=== PATIENT | male | born 1935 | race Caucasian/White ===

== ENCOUNTER 2019-03-22 18:00 | Emergency (ER) | payer MEDICARE ==
[2019-03-22 18:11] VITALS: O2SAT 97
--- NOTE | 2019-03-22 18:11 | ERPHSYRPT ---
- History of Present Illness Time Seen by Provider: 03/22/19 18:05 Source: patient, family Exam Limitations: no limitations Physician History: 84 y/o white male, on Eliquis, for nose bleed. pt states he does have nose bleeds occasionally. pt denies trauma. despite nose bleed intermittently for last couple of days, he has continued his Eliquis. last 2 hours, his bleeding has worsened. it is out of right nostril. Timing/Duration: today Severity: mild Associated Symptoms: denies symptoms (mild to mod) Allergies/Adverse Reactions: No Known Drug Allergies Allergy (Unverified 03/22/19 18:11) Home Medications: Atorvastatin Calcium 80 mg DAILY 03/22/19 [History] Brimonidine Tartrate [Alphagan P 0.15%] 1 drop DAILY 03/22/19 [History] Dorzolamide HCl/Timolol Maleat [Dorzolamide-Timolol Eye Drops] 1 drop DAILY [History] Famotidine 20 mg [Pepcid 20 MG] 20 mg DAILY 03/22/19 [History] Furosemide 40 mg DAILY 03/22/19 [History] Latanoprost 1 drop DAILY 03/22/19 [History] Lisinopril 5 mg DAILY 03/22/19 [History] Metoprolol Succinate 1 ea DAILY 03/22/19 [History] Metoprolol Succinate 100 mg [Toprol Xl 100 MG] 100 mg DAILY 03/22/19 [ History] Tamsulosin HCl 1 ea PO DAILY 03/22/19 [History] - Review of Systems Constitutional: No Symptoms Eyes: No Symptoms Ears, Nose, & Throat: Epistaxis (right side) Respiratory: No Symptoms Cardiac: No Symptoms Abdominal/Gastrointestinal: No Symptoms Genitourinary Symptoms: No Symptoms Musculoskeletal: No Symptoms Skin: No Symptoms Neurological: No Symptoms Psychological: No Symptoms Endocrine: No Symptoms Hematologic/Lymphatic: No Symptoms Immunological/Allergic: No Symptoms All Other Systems: Reviewed and Negative - Past Medical History Neurological History: Peripheral Neuropathy Cardiac History: Hypertension, Other Respiratory History: No Pertinent History Endocrine Medical History: Diabetes Type II Musculoskeletal History: Arthritis - Past Surgical History Cardiac: Pacemaker Respiratory: No Pertinent History - Nursing Vital Signs Nursing Vital Signs: Initial Vital Signs Temperature 99.0 F 03/22/19 18:05 Pulse Rate 74 03/22/19 18:05 Respiratory Rate 16 03/22/19 18:05 Blood Pressure 204/77 03/22/19 18:05 O2 Sat by Pulse Oximetry 97 03/22/19 18:05 Pain Scale Pain Intensity 0 - Physical Exam General Appearance: no apparent distress, alert, anxiety Eye Exam: PERRL/EOMI, eyes nml inspection Ears, Nose, Throat Exam: other (epistaxis right nostril. clot present. no sig active bleeding. no active bleeding from left nostril. no active bleeding into back of throat) Neck Exam: normal inspection, non-tender, full range of motion Respiratory Exam: normal breath sounds, lungs clear, airway intact, No chest tenderness, No respiratory distress Cardiovascular Exam: regular rate/rhythm, normal heart sounds, normal peripheral pulses Gastrointestinal/Abdomen Exam: No tenderness Rectal Exam: not done Back Exam: normal inspection, normal range of motion, No CVA tenderness, No vertebral tenderness Extremity Exam: normal inspection, normal range of motion, pelvis stable Skin Exam: normal color, warm, dry Lymphatic Exam: No adenopathy SpO2 Interpretation: normal O2 Delivery: Room Air Ordered Tests: Active Orders 24 hr Category Date Time Status Apply Nose Clip STAT Care 03/22/19 18:12 Active CBC W DIFF Stat Lab 03/22/19 18:25 Completed PROTIME WITH INR Stat Lab 03/22/19 18:25 Completed Medication Summary Discontinued Medications Generic Name Dose Route Start Last Admin Trade Name Freq PRN Reason Stop Dose Admin Phenylephrine HCl 15 ml 03/22/19 18:12 03/22/19 18:38 Neosynephrine 0.5% Nasal [place]/Drops NS 03/22/19 18:13 15 ml STAT ONE Administration Phenylephrine HCl Confirm 03/22/19 18:34 Neosynephrine 0.5% Nasal [place]/Drops Administered 03/22/19 18:35 Dose 15 ml .ROUTE .RUST-MED ONE Lab/Rad Data: Laboratory Result Diagrams 03/22/19 18:25 Laboratory Results 03/22/19 03/22/19 Range/Units 18:25 18:25 WBC 5.5 (4.0-10.5) K/mm3 RBC 4.79 (4.1-5.6) M/mm3 Hgb 14.3 (12.5-18.0) gm/dl Hct 45.1 (42-50) % MCV 94.2 (78-100) fl MCH 29.9 (26-32) pg MCHC 31.7 L (32-36) g/dl RDW 15.7 H (11.5-14.0) % Plt Count 83 L (150-450) K/mm3 Gran % 65.1 (36.0-66.0) % Eos # (Auto) 0.21 (0-0.5) Absolute Lymphs (auto) 1.24 (1.0-4.6) Absolute Monos (auto) 0.47 (0.0-1.3) Lymphocytes % 22.4 L (24.0-44.0) % Monocytes % 8.5 (0.0-12.0) % Eosinophils % 3.8 (0.00-5.0) % Basophils % 0.2 (0.0-0.4) % Absolute Granulocytes 3.60 (1.4-6.9) Basophils # 0.01 (0-0.4) PT 13.8 H (8.83-12.87) SECONDS INR 1.22 (0.8-3.0) - Progress Progress: improved Progress Note: 03/22/19 20:00 pt reexamined. medial aspect of inner nostril is reddened. vessels visible. reddened but clinically no further bleeding or clots in either nostril or oropharynx - Departure Departure Disposition: Home Clinical Impression: Epistaxis Condition: Stable Critical Care Time: No Referrals: LIZZIE SARMIENTO [Primary Care Provider] - Additional Instructions: use nasal drops provided as directed on product and apply nasal clamp for 30 minutes. stop all blood thinning medications and restart on Tuesday03/26/19. return to ED if unable to stop bleeding.
[2019-03-22] MEDS ORDERED: NEOSYNEPHRINE 0.5% NASAL SPRAY/DROPS NS ONE (18:12)
[2019-03-22] MEDS ORDERED: NEOSYNEPHRINE 0.5% NASAL SPRAY/DROPS ONE (18:34)
[2019-03-22 18:41] LABS: BASOPHIL % 0.2 % (0.0-0.4); Basophil (Absolute #) 0.01 (0-0.4); Eosinophil % 3.8 % (0.00-5.0); Eosinophil (Absolute #) 0.21 (0-0.5); Hematocrit 45.1 % (42-50); Hemoglobin 14.3 gm/dl (12.5-18.0); Lymphocyte (Absolute #) 1.24 (1.0-4.6); Lymphocytes % 22.4 % (24.0-44.0); Mean Cell Volume 94.2 fl (78-100); Mean Corpuscular Hemoglobin 29.9 pg (26-32); Mean Corpuscular Hgb Concent. 31.7 g/dl (32-36); Monocyte (Absolute #) 0.47 (0.0-1.3); Monocytes % 8.5 % (0.0-12.0); Neutrophil % 65.1 % (36.0-66.0); Platelet Count 83 K/mm3 (150-450); Red Blood Count 4.79 M/mm3 (4.1-5.6); Red Cell Distribution Width 15.7 % (11.5-14.0); White Blood Count 5.5 K/mm3 (4.0-10.5)
[2019-03-22 18:53] VITALS: PULSE 70
[2019-03-22 18:53] LABS: INR 1.22 (0.8-3.0); PROTIME 13.8 SECONDS (8.83-12.87)
[2019-03-22 20:24] VITALS: BP 158/82
== END 2019-03-22 20:26 | disposition home or self-care (01) ==
LOC: ED 18:00
DX: R04.0 Epistaxis (principal); Z79.01 Long term (current) use of anticoagulants; Z79.899 Other long term (current) drug therapy; I10 Essential (primary) hypertension; E11.9 Type 2 diabetes mellitus without complications
CPT/HCPCS: 36415; 85025; 85610; 99283; A9270-GY

== ENCOUNTER 2020-03-09 15:34 | Emergency (ER) | payer MEDICARE ==
[2020-03-09] MEDS ORDERED: Zofran 4 MG/2 ML VIAL IV ONE (15:43)
[2020-03-09] MEDS ORDERED: MORPHINE SULFATE 4 MG INJ IV ONE ×2 (15:43→18:48)
[2020-03-09 15:45] VITALS: O2SAT 94
[2020-03-09] MEDS ORDERED: MORPHINE SULFATE 4 MG INJ ONE ×2 (15:57→18:41)
[2020-03-09] MEDS ORDERED: Zofran 4 MG/2 ML VIAL ONE (15:57)
[2020-03-09 16:12] LABS: Absolute Neutrophil Ct (ANC) 5.79 (1.4-6.9); BASOPHIL % 0.1 % (0.0-0.4); Basophil (Absolute #) 0.01 (0-0.4); Eosinophil % 1.7 % (0.00-5.0); Eosinophil (Absolute #) 0.13 (0-0.5); Hematocrit 39.4 % (42-50); Lymphocyte (Absolute #) 0.94 (1.0-4.6); Lymphocytes % 12.6 % (24.0-44.0); Mean Cell Volume 97.3 fl (78-100); Mean Corpuscular Hemoglobin 29.6 pg (26-32); Mean Corpuscular Hgb Concent. 30.5 g/dl (32-36); Monocyte (Absolute #) 0.59 (0.0-1.3); Monocytes % 7.9 % (0.0-12.0); Neutrophil % 77.7 % (36.0-66.0); Platelet Count 148 K/mm3 (150-450); Red Blood Count 4.05 M/mm3 (4.1-5.6); Red Cell Distribution Width 14.9 % (11.5-14.0); White Blood Count 7.5 K/mm3 (4.0-10.5)
[2020-03-09 16:33] LABS: ALBUMIN 4.2 g/dL (3.5-5.0); ALKALINE PHOSPHATASE 157 U/L (38-126); ANION GAP 11.5 MEQ/L (5-15); BLOOD UREA NITROGEN 16 mg/dL (9-20); CHLORIDE 105 mmol/L (98-107); CK-Creatinine Phosphokinase 91 U/L (55-170); Calcium 9.5 mg/dL (8.4-10.2); Carbon Dioxide 28 mmol/L (22-30); Creatinine 1 1.22 mg/dL (0.66-1.25); EST GLOMERULAR FILTRATION RATE > 60.0 ML/MIN; Glucose 131 mg/dL (74-106); NT PRO BNP 1080 pg/mL (0-1800); Potassium 4.4 mmol/L (3.5-5.1); SGOT/AST 24 U/L (17-59); SGPT/ALT 16 U/L (0-50); SODIUM 140 mmol/L (137-145); Total Protein 8.4 g/dL (6.3-8.2)
[2020-03-09 16:51] LABS: INR 1.32 (0.8-3.0)
[2020-03-09 16:53] LABS: PTT 33.2 SECONDS (24.1-36.1)
[2020-03-09 18:19] VITALS: BP 168/86; PULSE 74
--- NOTE | 2020-03-09 18:35 | ERPHSYRPT ---
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 states he was getting off and fell. did hit head and + LOC, unknown time possibly up to 1 hour. no blood thinners. denies JAMES currently. rates 9/10 pain when it shoots through. pain is intermittent. better at rest. EMS placed in C collar per protocol for his back pain. A&Ox4. Physician History: 84 years old male with history of coronary artery disease, pacemaker placement, hypertension, hyperlipidemia presented in the ER by EMS after he tripped over while getting off of his lawnmower and did hit his head with positive loss of consciousness for almost 30 to 60 minutes. He is complaining of moderate to severe intensity sharp shooting pain in the upper mid back/shoulder blade area which is intermittent, more with movements and partial relief with being still. No difficulty breathing. Denies any headache, numbness tingling or focal weakness. Has difficulty vision at his baseline which is not any worse than usual. Denies any difficulty speech. Denies any neck pain. C-collar is applied by EMS. Patient recently has a hip replacement but denies any hip pain and moving all extremities without any limitation. No abdominal pain nausea or vomiting reported. Occurred: just prior to arrival Loss of Consciousness: prolonged (minutes) Pain Location: back Severity of Pain-Max: severe Severity of Pain-Current: moderate Modifying Factors: Improves With: immobilization, rest. Worsens With: movement Associated Symptoms: back pain, No confusion, No extremity injury, No headache, No lightheadedness, No shortness of breath, No slurred speech, No vomiting Allergies/Adverse Reactions: No Known Drug Allergies Allergy (Verified 03/09/20 16:14) Home Medications: Atorvastatin Calcium 80 mg DAILY 03/22/19 [History] Brimonidine Tartrate [Alphagan P 0.15%] 1 drop DAILY 03/22/19 [History] Dorzolamide HCl/Timolol Maleat [Dorzolamide-Timolol Eye Drops] 1 drop DAILY 03/22/19 [History] Famotidine 20 mg [Pepcid 20 MG] 20 mg DAILY 03/22/19 [History] Furosemide 40 mg DAILY 03/22/19 [History] Latanoprost 1 drop DAILY 03/22/19 [History] Metoprolol Succinate 1 ea DAILY 03/22/19 [History] Metoprolol Succinate 100 mg [Toprol Xl 100 MG] 100 mg DAILY 03/22/19 [History] lisinopriL [Lisinopril] 5 mg DAILY 03/22/19 [History] Hx Tetanus, Diphtheria Vaccination/Date Given: Yes Hx Influenza Vaccination/Date Given: Yes Hx Pneumococcal Vaccination/Date Given: Yes Immunizations Up to Date: Yes Travel Risk - International Travel Have you traveled outside of the country in past 3 weeks: No - Coronavirus Screening Are you exhibiting any of the following symptoms?: No Close contact with a COVID-19 positive Pt in past 14-21 Days: No - Review of Systems Constitutional: No Symptoms Eyes: No Symptoms Ears, Nose, & Throat: No Symptoms Respiratory: No Symptoms Cardiac: No Symptoms Abdominal/Gastrointestinal: No Symptoms Genitourinary Symptoms: No Symptoms Musculoskeletal: Back Pain Skin: No Symptoms Neurological: No Symptoms Psychological: No Symptoms Endocrine: No Symptoms Hematologic/Lymphatic: No Symptoms Immunological/Allergic: No Symptoms - Past Medical History Pertinent Past Medical History: Yes Neurological History: Peripheral Neuropathy Cardiac History: Hypertension, Other Respiratory History: No Pertinent History Endocrine Medical History: Diabetes Type II Musculoskeletal History: Arthritis - Past Surgical History Past Surgical History: Yes Cardiac: Pacemaker Respiratory: No Pertinent History Musculoskeletal: Orthopedic Surgery Other Surgical History: bilateral hip replacements - Social History Smoking Status: Never smoker Exposure to second hand smoke: No Drug Use: none Patient Lives Alone: Yes - Nursing Vital Signs Nursing Vital Signs: Initial Vital Signs Temperature 98.2 F 03/09/20 15:37 Pulse Rate 73 03/09/20 15:37 Respiratory Rate 16 03/09/20 15:37 Blood Pressure 177/98 03/09/20 15:37 O2 Sat by Pulse Oximetry 94 L 03/09/20 15:37 Pain Scale Pain Intensity 2 - Mary Coma Score Best Eye Response (Mary): (4) open spontaneously Best Verbal Response (Mary): (5) oriented Best Motor Response (Mary): (6) obeys commands Mary Total: 15 - Physical Exam General Appearance: no apparent distress, alert Head Injury: no evidence of injury, No Lepe's Sign, No contusions, No lacerations, No raccoon eyes, No swelling, No tenderness Eye Exam: bilateral eye: normal inspection, PERRL, EOMI ENT Exam: airway nml, evidence of ENT injury, No dental injury Neck Exam: supple, trachea midline, normal alignment, c-collar in place Respiratory/Chest Exam: normal breath sounds, No chest tenderness, No respiratory distress Cardiovascular Exam: normal heart sounds, regular rate/rhythm Gastrointestinal Exam: soft, normal bowel sounds, No tenderness Back Exam: normal inspection, vertebral tenderness (Midthoracic), decreased range of motion, muscle spasm, point tenderness, No CVA tenderness Extremity Exam: normal inspection, normal range of motion, capillary refill <3 sec, pelvis stable Neurologic Exam: alert, oriented x 3, cooperative, apn II-XII nml as tested, normal mood/affect, sensation nml, No motor deficits Skin Exam: normal color SpO2 Interpretation: normal SpO2: 94 O2 Delivery: Room Air - Course EKG Interpreted by Me: RATE (76), Other (Paced rhythm) Ordered Tests: Active Orders 24 hr Category Date Time Status Registered Nurse Cardiac Telemetry STAT Care 03/09/20 15:44 Active EKG-ER Only STAT Care 03/09/20 15:43 Active IV Insertion STAT Care 03/09/20 15:43 Active CERVICAL SPINE WO CONTRAST [CT] Stat Exams 03/09/20 15:46 Taken CHEST 1 VIEW (PORTABLE) Stat Exams 03/09/20 15:44 Taken CHEST WITH CONTRAST [CT] Stat Exams 03/09/20 15:45 Taken HEAD WITHOUT CONTRAST [CT] Stat Exams 03/09/20 15:46 Taken THORACIC SPINE W/O CONTRAST [CT] Stat Exams 03/09/20 15:46 Taken CBC W DIFF Stat Lab 03/09/20 15:55 Completed CK-Creatinine Phosphokinase Stat Lab 03/09/20 15:55 Completed CMP Stat Lab 03/09/20 15:55 Completed NT PRO BNP Stat Lab 03/09/20 15:55 Completed PROTIME WITH INR Stat Lab 03/09/20 15:55 Completed PTT Stat Lab 03/09/20 15:55 Completed TROPONIN Q3H Lab 03/09/20 15:55 Completed TROPONIN Q3H Lab 03/09/20 18:45 Ordered TROPONIN Q3H Lab 03/09/20 21:45 Ordered TROPONIN Q3H Lab 03/10/20 00:45 Ordered TROPONIN Q3H Lab 03/10/20 03:45 Ordered Medication Summary Discontinued Medications Generic Name Dose Route Start Last Admin Trade Name Antoni PRN Reason Stop Dose Admin Morphine Sulfate 4 mg 03/09/20 15:43 03/09/20 15:59 Morphine Sulfate 4 Mg Inj IV 03/09/20 15:44 4 mg STAT ONE Administration Morphine Sulfate Confirm 03/09/20 15:57 Morphine Sulfate 4 Mg Inj Administered 03/09/20 15:58 Dose 4 mg .ROUTE .STK-MED ONE Ondansetron HCl 4 mg 03/09/20 15:43 03/09/20 15:58 Zofran 4 Mg/2 Ml Vial IV 03/09/20 15:44 4 mg STAT ONE Administration Ondansetron HCl Confirm 03/09/20 15:57 Zofran 4 Mg/2 Ml Vial Administered 03/09/20 15:58 Dose 4 mg .ROUTE .STK-MED ONE Lab/Rad Data: Laboratory Result Diagrams 03/09/20 15:55 03/09/20 15:55 Laboratory Results 03/09/20 03/09/20 03/09/20 Range/Units 15:55 15:55 15:55 WBC (4.0-10.5) K/mm3 RBC (4.1-5.6) M/mm3 Hgb (12.5-18.0) gm/dl Hct (42-50) % MCV (78-100) fl MCH (26-32) pg MCHC (32-36) g/dl RDW (11.5-14.0) % Plt Count (150-450) K/mm3 MPV (7.5-11.0) fl Gran % (36.0-66.0) % Eos # (Auto) (0-0.5) Absolute Lymphs (auto) (1.0-4.6) Absolute Monos (auto) (0.0-1.3) Lymphocytes % (24.0-44.0) % Monocytes % (0.0-12.0) % Eosinophils % (0.00-5.0) % Basophils % (0.0-0.4) % Absolute Granulocytes (1.4-6.9) Basophils # (0-0.4) PT 15.0 H (8.83-12.87) SECONDS INR 1.32 (0.8-3.0) APTT 33.2 (24.1-36.1) SECONDS Sodium 140 (137-145) mmol/L Potassium 4.4 (3.5-5.1) mmol/L Chloride 105 (98-107) mmol/L Carbon Dioxide 28 (22-30) mmol/L Anion Gap 11.5 (5-15) MEQ/L BUN 16 (9-20) mg/dL Creatinine 1.22 (0.66-1.25) mg/dL Estimated GFR > 60.0 ML/MIN Glucose 131 H (74-106) mg/dL Calcium 9.5 (8.4-10.2) mg/dL Total Bilirubin 1.00 (0.2-1.3) mg/dL AST 24 (17-59) U/L ALT 16 (0-50) U/L Alkaline Phosphatase 157 H (38-126) U/L Creatine Kinase 91 (55-170) U/L Troponin I < 0.012 (0.000-0.034) ng/mL NT-Pro-B Natriuret Pep 1080 (0-1800) pg/mL Serum Total Protein 8.4 H (6.3-8.2) g/dL Albumin 4.2 (3.5-5.0) g/dL 03/09/20 Range/Units 15:55 WBC 7.5 (4.0-10.5) K/mm3 RBC 4.05 L (4.1-5.6) M/mm3 Hgb 12.0 L (12.5-18.0) gm/dl Hct 39.4 L (42-50) % MCV 97.3 (78-100) fl MCH 29.6 (26-32) pg MCHC 30.5 L (32-36) g/dl RDW 14.9 H (11.5-14.0) % Plt Count 148 L (150-450) K/mm3 MPV 12.0 H (7.5-11.0) fl Gran % 77.7 H (36.0-66.0) % Eos # (Auto) 0.13 (0-0.5) Absolute Lymphs (auto) 0.94 L (1.0-4.6) Absolute Monos (auto) 0.59 (0.0-1.3) Lymphocytes % 12.6 L (24.0-44.0) % Monocytes % 7.9 (0.0-12.0) % Eosinophils % 1.7 (0.00-5.0) % Basophils % 0.1 (0.0-0.4) % Absolute Granulocytes 5.79 (1.4-6.9) Basophils # 0.01 (0-0.4) PT (8.83-12.87) SECONDS INR (0.8-3.0) APTT (24.1-36.1) SECONDS Sodium (137-145) mmol/L Potassium (3.5-5.1) mmol/L Chloride (98-107) mmol/L Carbon Dioxide (22-30) mmol/L Anion Gap (5-15) MEQ/L BUN (9-20) mg/dL Creatinine (0.66-1.25) mg/dL Estimated GFR ML/MIN Glucose (74-106) mg/dL Calcium (8.4-10.2) mg/dL Total Bilirubin (0.2-1.3) mg/dL AST (17-59) U/L ALT (0-50) U/L Alkaline Phosphatase (38-126) U/L Creatine Kinase (55-170) U/L Troponin I (0.000-0.034) ng/mL NT-Pro-B Natriuret Pep (0-1800) pg/mL Serum Total Protein (6.3-8.2) g/dL Albumin (3.5-5.0) g/dL - Progress Progress: improved, pain not gone completely, re-examined Progress Note: 03/09/20 18:37 84 years old is evaluated in the ER for fall with head injury and positive loss of consciousness. Patient is in c-collar, nonfocal neuro exam. He is given morphine for symptomatic relief. I have obtained CT head which showed tiny right subarachnoid bleed. CT cervical spine/thoracic spine/chest with contrast is negative for any acute trauma related findings. EKG showed paced rhythm. Grossly unremarkable work-up otherwise. Discussed with Dr. Cole at [facility] trauma services and patient is accepted for transfer. Plan discussed with patient and family understand and agree with it. Discussed with Dr.: Other () - Departure Departure Disposition: Transfer Clinical Impression: Subarachnoid hemorrhage Midline thoracic back pain Qualifiers: Chronicity: acute Qualified Code(s): M54.6 - Pain in thoracic spine Condition: Stable Critical Care Time: Yes Critical Care Time(excluding separately billable procedures): Critical 30-74 mins Referrals: LIZZIE ALMODOVAR [Primary Care Provider] -
--- NOTE | 2020-03-09 20:06 | XRAY ---
Indication: Pain following fall. Multiple contiguous axial images obtained through the head without contrast. Comparison: None Age-appropriate global atrophy and mild periventricular degenerative micro-ischemia bilaterally. No acute intracranial hemorrhage, abnormal extra-axial fluid collection, or mass effect. Fourth ventricle is midline without hydrocephalus. Anatomic variant for cavum septum pellucidum. Bony calvarium intact. Visualized paranasal sinuses and mastoid air cells are clear. Impression: Nonacute senile brain. Comment: Preliminary interpretation was made by [facility]. No critical discrepancy.
--- NOTE | 2020-03-09 20:08 | XRAY ---
Indication: Pain following fall. Multiple contiguous axial images obtained through the cervical spine. Sagittal and coronal reformatted images obtained. Comparison: None Age-related osteopenia. Axial images negative for acute fracture, suspicious bone lesions, or spinal canal stenosis. Mild multilevel anterior/posterior endplate spurring. Also mild/moderate multilevel bilateral degenerative facet hypertrophy. Sagittal and coronal reformatted images demonstrate normal alignment with minimal C3-C4 and C5-C6 disc space narrowing. No acute compression fracture, subluxation, or jumped set. Normal-appearing craniocervical junction. Visualized noncontrasted soft tissues demonstrates moderate bilateral carotid calcifications. CT head and CT chest reported separately. Impression: 1. Negative acute fracture/subluxation. 2. Osteopenia and multilevel degenerative changes. Comment: Preliminary interpretation was made by [facility]. No critical discrepancy.
--- NOTE | 2020-03-09 20:15 | XRAY ---
Indication: Sharp pain upper back following fall. Multiple contiguous axial images obtained through the chest using 100 cc Isovue-370 contrast and PE protocol. Comparison: None There is satisfactory opacification of the pulmonary arteries to include the lobar and segmental branches. No pulmonary embolus. Heart is not enlarged with left atrial appendage clip and left-sided dual lead pacemaker. Aorta is mildly anterior sclerotic without aneurysm/dissection. Tiny subcarinal and left hilar calcified nodes. No pathologic mediastinal/hilar lymphadenopathy. Moderate-sized hiatal hernia. Lungs are inflated with mild bilateral dependent atelectasis and tiny bilateral effusions. No suspicious pulmonary mass, infiltrate, or pneumothorax. Bony thorax demonstrates osteopenia, flowing osteophytes throughout the spine, and sternotomy wires. No acute fracture, dislocation, or suspicious bony lesions. Limited upper abdomen demonstrates a few small bilateral renal cysts, largest right midpole measuring 1.4 cm. Impression: 1. Negative pulmonary embolus. No acute cardiopulmonary abnormalities. 2. Incidental nonspecific tiny bilateral effusions, hiatal hernia, bilateral renal cysts, postsurgical changes, and chronic bony findings. Comment: Preliminary interpretation was made by [facility]. No critical discrepancy.
--- NOTE | 2020-03-09 20:17 | XRAY ---
Indication: Pain following fall. Multiple contiguous axial images obtained through the thoracic spine. Sagittal and coronal reformatted images obtained. Comparison: None Age-related osteopenia. Axial images negative for acute fracture, suspicious bone lesions, or spinal canal stenosis. There are flowing osteophytes throughout the spine favoring diffuse idiopathic skeletal hyperostosis. Sagittal and coronal reformatted images demonstrates normal alignment with vertebral body heights/disc spaces maintained. No acute compression fracture or subluxation. CT chest reported separately. Impression: 1. Negative acute fracture/subluxation. 2. Osteopenia and multilevel degenerative changes. Comment: Preliminary interpretation was made by [facility]. No critical discrepancy.
--- NOTE | 2020-03-09 20:19 | XRAY ---
Indication: Pain following fall. Comparison: August 04, 2017. Portable chest remains inflated and clear. Heart is not enlarged again with cardiac clip and left dual-lead pacemaker. Bony thorax intact again with osteopenia and sternotomy hardware. Impression: Continued nonacute chest with chronic features.
== END 2020-03-09 18:50 | disposition short-term general hospital (02) ==
LOC: ED 15:34
DX: S06.6X2A Traumatic subarachnoid hemorrhage with loss of consciousness of 31 minutes to 59 minutes, initial encounter (principal); M54.6 Pain in thoracic spine; M54.9 Dorsalgia, unspecified; W31.89XA Contact with other specified machinery, initial encounter; Y93.H9 Activity, other involving exterior property and land maintenance, building and construction; I10 Essential (primary) hypertension; E78.5 Hyperlipidemia, unspecified; Z79.899 Other long term (current) drug therapy; E11.9 Type 2 diabetes mellitus without complications; Z95.0 Presence of cardiac pacemaker
CPT/HCPCS: 36000; 36415; 70450; 71045; 71260; 72125; 72128; 80053; 82550; 83880; 84484; 85025; 85610; 85730; 93005; 93041; 96374; 96375; 96376; 99285; 99291; J2270; J2405